=== PATIENT | female | born 1995 | race Caucasian/White ===

== ENCOUNTER 2018-06-04 07:28 | Emergency (ER) | END 2018-06-04 09:24 | disposition home or self-care (01) ==

== ENCOUNTER 2018-06-08 22:10 | Emergency (ER) | END 2018-06-09 01:27 | disposition left against medical advice (07) ==

== ENCOUNTER 2018-06-09 08:13 | Emergency (ER) | END 2018-06-09 11:04 | disposition home or self-care (01) ==

== ENCOUNTER 2018-08-03 11:23 | Emergency (ER) | END 2018-08-03 13:53 | disposition home or self-care (01) ==

== ENCOUNTER 2018-10-05 01:55 | Outpatient (CLI) | END 2018-10-05 12:25 | disposition home or self-care (01) ==

== ENCOUNTER 2018-12-04 16:02 | Inpatient (IN) | payer OTHER ==
[~2018-12-04] VITALS: Ht 162.6 cm; Wt 74.0 kg
[~2018-12-04 16:02] MED LIST: PREN-19 PO
[2018-12-04 16:36] VITALS: Ht 162.6 cm; Wt 74.0 kg
[2018-12-04 16:40] VITALS: BP 101/56; PULSE 86; RESP 20
[2018-12-04] MEDS ORDERED: LACTATED RINGER'S 1,000 ML IV SCH (17:30)
--- NOTE | 2018-12-04 19:35 | HP ---
Date/Time of Note Date/Time of Note DATE: 12/04/18 TIME: 19:29 OB - History Hx of Present Free Text/Dictation Patient is a 22-year-old 2 para 1 at 31 weeks and 3 days of gestation with estimated date of delivery February 02, 2019 Patient presents with chief complaint of abdominal pressure She is currently on weekly [place] secondary to history of delivery at 34 weeks of gestation Patient reports positive movement, denies any vaginal bleeding or leaking fluid : 2 Para: 1 Care: Good Care Obstetrical Complications: Other (Cervical shortening) Past Family/Social History * Past Medical, Surgical, Family and Obstetric Histories reviewed from chart. OB Admission Exam Vital Signs Vital Signs Vital Signs Date Temp Pulse Resp B/P (MAP) Pulse Ox O2 O2 Flow FiO2 Time Delivery Rate 12/04/18 98.6 86 20 101/56 Room Air 16:40 (71) Physical Exam HEENT: WNL Heart: Rhythm Normal Lungs: Clear, Equal Abdomen: WNL Extremities: Normal Reflexes: Normal Membranes: Intact Heart Rate: 140's Accelerations: Accelerations Present Decelerations: No Decelerations Varibility: Moderate Contractions on Admission: None Last 72 hourBlood Glucose fibronectin positive PROCEDURE: US OB. CLINICAL INDICATION: labor at 31 weeks gestational age. TECHNIQUE: Multiple sonographic images of the uterus were obtained. The images were reviewed on a PACS workstation. COMPARISON: No prior studies are available for comparison. FINDINGS: There is a single live intrauterine gestation. heart rate is 132 beats per minute. Measurements were made in order to determine age. The results are as follows: BPD = 8.27 cm. HC = 29.86 cm. AC = 30.48 cm. FL = 6.28 cm. Estimated weight is 2243 +/- 336 grams. LMP growth percentile is 96 %. Menstrual age by ultrasound dates is 33 weeks 3 days. The estimated date of delivery is 01/19/2019. Position is cephalic and placenta is anterior grade II. There is no evidence for an abruption or placenta previa. IMPRESSION: 1. Single live intrauterine gestation of 33 weeks 3 days gestational age by ultrasound dates. 2. The estimated date of delivery is 01/19/2019. 3. LMP growth percentile is 96%. RPTAT: QQ .Vikas Henley MD, MD Date Time Electronically viewed and signed by .Vikas Henley MD, MD on 12/04/2018 19:02 .R/ CC: JEREMÍAS PRETTY MD [id number] PROCEDURE: US biophysical profile and transvaginal sonography of the cervix. CLINICAL INDICATION: labor at 31 weeks gestational age. TECHNIQUE: Multiple sonographic images of the uterus were obtained. Transvaginal sonography of the cervix was also performed. The images were reviewed on a PACS workstation. COMPARISON: No prior studies are available for comparison. FINDINGS: There is a single live intrauterine gestation. heart rate is 137 beats per minute. The position is cephalic. The placenta is anterior grade II with no abruption or previa. The YAJAIRA is 12.9 cm. (Normal = 5-20 cm.) Cervical length is 2.0 cm. Breathing Movement: 2 Gross Body Movement: 2 Tone: 2 Qualitative Amniotic Fluid Volume: 2 TOTAL: 8 IMPRESSION: 1. The biophysical score is 8/8. 2. Cervical length is 2.0 cm. RPTAT: QQ .Vikas Henley MD, MD Date Time Electronically viewed and signed by .Vikas Henley MD, MD on 12/04/2018 19:01 .R/ CC: JEREMÍAS PRETTY MD [id number] Last 72 hours Lab Results Urine Results - 72 Hrs Test 12/04/18 17:10 Urine Color YELLOW (YELLOW) Urine Clarity SLIGHTLY CLOUDY (CLEAR) Urine pH 6.0 (5.0-9.0) Urine Specific [place] 1.020 (1.003-1.030) Urine Ketones NEGATIVE mg/dL (NEGATIVE) Urine Nitrite NEGATIVE mg/dL (NEGATIVE) Urine Bilirubin NEGATIVE mg/dL (NEGATIVE) Urine Urobilinogen NEGATIVE mg/dL (NEGATIVE) Urine Leukocyte Esterase 2+ [place]/ul (NEGATIVE) H Urine Microscopic RBC 1 /HPF (0-5) Urine Microscopic WBC 3 /HPF (0-5) Urine Squamous Epithelial Cells MODERATE /HPF (FEW) Urine Mucus FEW /HPF (NONE SEEN) A Urine Hemoglobin NEGATIVE mg/dL (NEGATIVE) Urine Glucose NEGATIVE mg/dL (NEGATIVE) Urine Total Protein NEGATIVE mg/dl (NEGATIVE) OB Assessment/Plan Reason for admission: labor (Cervical shortening 2 cm) Other plan: Admit to antepartum Continuous monitoring Betamethasone for lung maturity Antibiotics for urinary tract infection Prometrium 200 mg per vagina nightly Perinatology consultation Copies To: CC: MARCIA COLIN MD ; JEREMÍAS PRETTY MD Dec 04, 2018 19:35
[2018-12-04] MEDS ORDERED: PROGESTERONE 100 MG CAP VAG SCH ×2 (20:00→21:00)
[2018-12-04] MEDS: LACTATED RINGER'S 1,000 ML IV SCH (20:21)
[2018-12-04] MEDS ORDERED: CA GLUCONATE (GM) 10% 10ML INJ IV PRN (20:30)
[2018-12-04] MEDS ORDERED: AMPICILLIN 2 GM/NS (PMX) 100 ML IV ONE (20:30)
[2018-12-04] MEDS ORDERED: MAGNESIUM SULFATE 4 GM/100 ML 100 ML IV ONE (20:30)
[2018-12-04] MEDS: PROGESTERONE 100 MG CAP VAG SCH (20:38)
[2018-12-04] MEDS ORDERED: MAGNESIUM SULFATE 20 GM/500 ML 500 ML IV SCH (21:00)
[2018-12-04] MEDS: MAGNESIUM SULFATE 20 GM/500 ML 500 ML IV SCH (21:31)
[2018-12-04] MEDS: BETAMET NA PHOS/AC(6 MG/ML) 2 ML INJ SYG IM SCH (21:33)
[2018-12-05] MEDS: AMPICILLIN 1 GM/NS (PMX) 50 ML IV SCH ×6 (00:35→20:46)
[2018-12-05] MEDS: LACTATED RINGER'S 1,000 ML IV SCH (07:00)
[2018-12-05] MEDS: MAGNESIUM SULFATE 20 GM/500 ML 500 ML IV SCH ×2 (08:50→19:42)
[2018-12-05] MEDS ORDERED: DOCUSATE SODIUM 100 MG CAP PO SCH (09:00)
[2018-12-05] MEDS ORDERED: PRENATAL VITAMIN PO SCH (09:00)
[2018-12-05] MEDS ORDERED: FERROUS SULFATE (EC) 325 MG TAB PO SCH (09:00)
[2018-12-05] MEDS: BETAMET NA PHOS/AC(6 MG/ML) 2 ML INJ SYG IM SCH (21:32)
[2018-12-05] MEDS: PROGESTERONE 100 MG CAP VAG SCH (22:48)
[2018-12-06] MEDS: AMPICILLIN 1 GM/NS (PMX) 50 ML IV SCH ×4 (00:36→12:29)
[2018-12-06] MEDS: LACTATED RINGER'S 1,000 ML IV SCH (02:14)
[2018-12-06] MEDS: MAGNESIUM SULFATE 20 GM/500 ML 500 ML IV SCH (06:12)
--- NOTE | 2018-12-06 09:18 | QN ---
Documentation Comment Late Entry Note:12/05/17 31+wks GA with PTL No CTXs No VB NST reassuring [place] No CTXs pelvic Deferred --->Steroids Mg -->Discharge plan tomorrow ROSE FORDE M.D. Dec 06, 2018 09:18
--- NOTE | 2018-12-06 09:19 | QN ---
Documentation Comment 31+wks GA with PTL No CTXs No VB NST reassuring [place] No CTXs pelvic Deferred --->Perinatology consult --->Repeat ultrasound tomorrow --->Discharge plan tomorrow ROSE FORDE M.D. Dec 06, 2018 09:19
[2018-12-06] MEDS ORDERED: NACL 0.9% 3 ML SYG IV SCH (21:30)
[2018-12-06] MEDS: FERROUS SULFATE (EC) 325 MG TAB PO SCH (22:55)
[2018-12-06] MEDS: DOCUSATE SODIUM 100 MG CAP PO SCH (22:55)
[2018-12-06] MEDS: PRENATAL VITAMIN PO SCH (22:55)
[2018-12-07] MEDS: PROGESTERONE 100 MG CAP VAG SCH ×2 (00:31→21:03)
[2018-12-07] MEDS: PRENATAL VITAMIN PO SCH (23:34)
[2018-12-07] MEDS: FERROUS SULFATE (EC) 325 MG TAB PO SCH (23:34)
[2018-12-08] MEDS: DOCUSATE SODIUM 100 MG CAP PO SCH ×2 (09:31→17:42)
--- NOTE | 2018-12-08 13:50 | CONS ---
Date/Time of Note Date/Time of Note DATE: 12/08/18 TIME: 13:45 Assessment/Plan Assessment/Plan Result Diagram: 12/04/18194412/04/181944 Consultation Date/Type/Reason Admit Date/Time Dec 04, 2018 at 19:30 Date of Consultation: Dec 08, 2018 Type of Consult Neonatology Reason for Consultation 31.6 weeks gestation mother with short cervix Requesting Provider: MARCIA COLIN MD Hx of Present Illness I was asked to do a consultation on this mother who is 22-year old with 31.6- week . She is 4 para 1 AB 2 living 1. She has 1 child who is 3 years old and was born at 34 weeks gestation in [facility]. Doing well with no problems. Mother had good care. Her labs are as follows blood group O+, RPR nonreactive, HBsAg negative, HIV negative, GC and chlamydia cultures negative, GBS unknown. She has no pre-existing medical conditions and she has history of short cervix and delivering the previous child 3 years ago. She was admitted on 12/04/2018 and received betamethasone on at 2136 hrs. and second dose on 12/05 at 2131 hrs. She also received magnesium sulfate from o 12/06. Ultrasound on admission showed an estimated weight of 20-43 g 336 and 33.3 weeks of composite gestational age. There is no contractions at the present time and membranes are intact. I discussed about the risk of premature infant at 32 weeks including respiratory distress syndrome, retained lung fluid, apnea of prematurity, risk for sepsis, risk for hyperbilirubinemia, risk for neurodevelopmental delay, poor feeding requiring go watch feeding, TPN, possible PICC line placement, and to be monitored for all problems of prematurity. Discussed about the treatment in cluding oxygen administration, CPAP administration, caffeine if has significant apnea, antibiotics if clinical signs of sepsis, phototherapy if needed for jaundice, PICC line and feeding intolerance, and poor feeding. Mother would like to breast-feed the and encouraged her to pump jc stmilk and discussed about the benefits of breastmilk. Renetta about good outcomes at 32 weeks including survival of greater than 95% and risk for neurodevelopmental delay. All mother's questions were answered and discussion was concluded after mother had no further questions. Total time spent 20 minutes with [id number] counseling of 15 minutes. Past Medical History Medications Current Medications Progesterone (Prometrium) 200 mg QHS VAG Last administered on 12/07/18 21:03; Admin Dose 200 MG; Start 12/04/18 at 20:00 Calcium Gluconate (Ca Gluc) 1 gm ONCE PRN IV TOXCITY; Start 12/04/18 at 20:30 IV Flush (NS 3 ml) 3 ml Q8H and PRN adm IV ; Start 12/06/18 at 21:30 Docusate Sodium (Colace) 100 mg DAILY PO Last administered on 12/06/18 22:55; Admin Dose 100 MG; Start 12/06/18 at 22:00 Ferrous Sulfate (Ferrous Sulfate (Ec)) 325 mg DAILY PO Last administered on 12/07/18 23:34; Admin Dose 325 MG; Start 12/06/18 at 22:00 Prenat Multivit/ [place]/Iron/Folic Ac () 1 tab DAILY PO Last administered on 12/07/18 23:34; Admin Dose 1 TAB; Start 12/06/18 at 22:00 Allergies: Coded Allergies: No Known Allergy (Unverified , 10/05/18) Social History Smoking Status: Never smoker Exam/Review of Systems Vital Signs Vitals Vital Signs Date Temp Pulse Resp B/P (MAP) Pulse Ox O2 O2 Flow FiO2 Time Delivery Rate 12/04/18 98.6 86 20 101/56 Room Air 16:40 (71) Medications Medications Current Medications Progesterone (Prometrium) 200 mg QHS VAG Last administered on 12/07/18 21:03; Admin Dose 200 MG; Start 12/04/18 at 20:00 Calcium Gluconate (Ca Gluc) 1 gm ONCE PRN IV TOXCITY; Start 12/04/18 at 20:30 IV Flush (NS 3 ml) 3 ml Q8H and PRN adm IV ; Start 12/06/18 at 21:30 Docusate Sodium (Colace) 100 mg DAILY PO Last administered on 12/06/18 22:55; Admin Dose 100 MG; Start 12/06/18 at 22:00 Ferrous Sulfate (Ferrous Sulfate (Ec)) 325 mg DAILY PO Last administered on 12/07/18 23:34; Admin Dose 325 MG; Start 12/06/18 at 22:00 Prenat Multivit/ [place]/Iron/Folic Ac () 1 tab DAILY PO Last administered on 12/07/18at 23:34; Admin Dose 1 TAB; Start 12/06/18 at 22:00 GLORIA JAVED MD Dec 08, 2018 13:50
[2018-12-08] MEDS: NIFEdipine 10 MG CAP PO SCH (17:43)
[2018-12-08] MEDS: FERROUS SULFATE (EC) 325 MG TAB PO SCH (23:57)
[2018-12-08] MEDS: PROGESTERONE 100 MG CAP VAG SCH (23:57)
[2018-12-08] MEDS: PRENATAL VITAMIN PO SCH (23:58)
[2018-12-09] MEDS: NIFEdipine 10 MG CAP PO SCH ×4 (00:27→18:04)
--- NOTE | 2018-12-09 01:49 | PN ---
Date/Time of Note Date/Time of Note DATE: 12/09/18 TIME: 01:48 OB Subjective Subjective Subjective Patient seen and examined on 12/08/2018. She states good movement. She denies nausea, vomiting, shortness of breath, chest pain, abdominal pain between contractions, headache, visual changes, vaginal bleeding or LOF. OB Objective Objective Objective General: Patient appears well, alert and oriented, NAD, appropriate mood and affect ABD: gravid, soft, non-tender. Back: No CVA tenderness (B/L) LE: Mild edema. No clubbing, cyanosis, edema, thigh or calf tenderness bilaterally FHT: 130 bpm , moderate variability with acceleration, no deceleration-category I Contractions: None OB Assessment/Plan Other plan: 22-year-old with single intrauterine at 31 weeks and 6 days with short cervix. Her exam is unremarkable. heart rate is category 1. She has no uterine contraction. She has received magnesium sulfate and betamethasone, currently steroid benefited. She is on Prometrium vaginal suppository and Procardia 10 mg every 6 hours. Continue in-house management until 33 weeks. JOSE DE JESUS FIERRO Dec 09, 2018 01:49
[2018-12-09] MEDS: DOCUSATE SODIUM 100 MG CAP PO SCH (20:30)
[2018-12-09] MEDS: FERROUS SULFATE (EC) 325 MG TAB PO SCH (21:30)
[2018-12-09] MEDS: PRENATAL VITAMIN PO SCH (21:30)
[2018-12-09] MEDS: PROGESTERONE 100 MG CAP VAG SCH (21:31)
[2018-12-10] MEDS: NIFEdipine 10 MG CAP PO SCH ×5 (00:03→23:39)
--- NOTE | 2018-12-10 01:39 | CONS ---
DATE OF ADMISSION: 12/04/2018 DATE OF CONSULTATION: 12/09/2018 HISTORY OF PRESENT ILLNESS: The patient is a 22-year-old G4, P1, 2 abortions at 32 weeks today, pres ented with complaint of abdominal pain. Cervical length was 1.2 cm. She was given magnesium sulfate and betamethasone. OBSTETRIC HISTORY: Significant for spontaneous vaginal delivery at 34 weeks, otherwise negative. REVIEW OF SYSTEMS: All systems reviewed. They are negative. OBJECTIVE: Vital signs are normal. Physical examination deferred. heart tones are reassuring . Contractions are irritabilities. IMPRESSION: Intrauterine at 32 weeks with labor at 32 weeks and status post magnes ium and betamethasone, history of vaginal delivery at 34 weeks. Currently, she is on Prometrium at b edtime as IM progesterone is not available. RECOMMENDATIONS: Given the patient's history and 1.2 cm of the cervix, I do recommend to keep the pa tient at least of 33 weeks' ____ repeat a cervical length on this coming Thursday. If there is no c hange in the status, the patient can be discharged home especially since she needs to be reporting to court for her immigration; however, I spoke to her if there is any change in cervical length or her status changes, we will discuss further. Procardia-XL 10 mg every 6 hours as long as her blood press ures allow, begin ____ and upon discharge, she needs to be continued on IM progesterone weekly as opp osed to progesterone vaginally. Dictated By: LOU GUTIERREZ/DANISHA Conf#: [id number] DID#: [id number]
--- NOTE | 2018-12-10 03:46 | QN ---
Documentation Comment late entry for service rendered 0n 12/09/180 no c/o of cramping pain EFM no uterine activities tracing ok CVL 1.2cm on procardia A IUP 32w short cervix S/P BMZ and Mg P continue current care repeat CVL in one week ANDRADE KULKARNI MD Dec 10, 2018 03:46
[2018-12-10] MEDS: DOCUSATE SODIUM 100 MG CAP PO SCH (09:08)
--- NOTE | 2018-12-10 17:45 | QN ---
Documentation Comment no complain of cramping pain ,feels pressure only on standing to go BR having BM daily EFM no uterine activities CAT I tracing A IUP 32w2d short cervix no PTL P repeat CVL on thu ANDRADE KULKARNI MD Dec 10, 2018 17:45
[2018-12-10] MEDS: FERROUS SULFATE (EC) 325 MG TAB PO SCH (21:15)
[2018-12-10] MEDS: PRENATAL VITAMIN PO SCH (21:15)
[2018-12-10] MEDS: PROGESTERONE 100 MG CAP VAG SCH (21:53)
[2018-12-11] MEDS: NIFEdipine 10 MG CAP PO SCH ×3 (05:45→18:00)
--- NOTE | 2018-12-11 16:06 | PN ---
Date/Time of Note Date/Time of Note DATE: 12/11/18 TIME: 16:03 OB Subjective Subjective Subjective Denies any contractions, leaking of fluid, vaginal bleeding or decreased movement. Denies any pelvic pain. OB Objective Objective Objective General appearance: Alert and oriented x4 does not appear to be in any acute distress Abdomen: Soft, gravid, fundal height consider gestational age, no tenderness NST: Category 1 and appropriate for gestational age No contraction on the monitor noted extremities: No calf tenderness, no click no edema OB Assessment/Plan Other Assessment: Admitted for labor and short cervix Status post betamethasone Currently on Procardia 10 mg every 6 hours Doing well Status post perinatology consultation Plan to proceed with repeat cervical length soon. If cervix remains stable possible discharge home with a follow-up as outpatient and rest at home Patient aware of the plan YEMI LEAL MD Dec 11, 2018 16:06
[2018-12-11] MEDS ORDERED: AL HYDROX/MG HYDROX/SIMETH 30 ML CUP PO PRN (19:00)
[2018-12-11] MEDS: DOCUSATE SODIUM 100 MG CAP PO SCH (20:00)
[2018-12-11] MEDS: PRENATAL VITAMIN PO SCH (21:04)
[2018-12-11] MEDS: PROGESTERONE 100 MG CAP VAG SCH (21:04)
[2018-12-11] MEDS: FERROUS SULFATE (EC) 325 MG TAB PO SCH (21:04)
--- NOTE | 2018-12-11 23:08 | PN ---
Date/Time of Note Date/Time of Note DATE: 12/11/18 TIME: 22:59 OB Subjective Subjective Subjective I was called by RN to evaluate the patient that reproted today to RN, having chest pain and SOB since last night. Noted to have tachycardia as well. Denies any LOF, vaginal Bleeding. Or decreased movement OB Objective Objective Objective GA: A&O, Does not appear to be in any acute distress. Lungs: CTA bilaterally CV: RRR. Sinus tachycardia Extremities: No callf tenderness, no cord palpable. No cord palpable [place]: no contractions. CXR: Granuloma EKG:: Normal sinus rythms ROCEDURE: XR Chest. CLINICAL INDICATION: chest pain TECHNIQUE: PA and lateral views of the chest were obtained COMPARISON: None FINDINGS: The heart and mediastinum are within normal limits. There is a right middle lobe calcified granuloma. There is no pleural effusion or pneumothorax. The bones and soft tissues are unremarkable. RPTAT: AA IMPRESSION: Right middle lobe calcified granuloma. .Toni Muñiz MD, MD Date Time ROCEDURE: Ultrasound examination of bilateral lower extremities veins with Doppler. CLINICAL INDICATION: Leg pain and swelling, shortness of breath. TECHNIQUE: Multiple sonographic images of bilateral lower extremity venous systems were performed with xiao scale and color Doppler. COMPARISON: None. FINDINGS: Bilateral common femoral, superficial femoral and popliteal veins demonstrate normal color flow, waveforms, compression and response to augmentation. There is no evidence of deep venous thrombosis. IMPRESSION: No evidence of deep venous thrombosis within bilateral lower extremities. OB Assessment/Plan Other Assessment: Admitted to labor s/p Tocolysis and received Steroid Tachycardia and Pleuritic chest pain, , on bed rest, high risk for PE, Doppler of the lower extremity negative. Can not r/o carddiomyopathy., If PE ruled out, and continue to be tachycardic, consider Echocardiogram Consultation with Hospitalist done,. DR. Potts that will see her RALPH I will start the patient on Heparin Sub Q BID until cleared for PE Plan of care disucssed with the patient and RN. YEMI LEAL MD Dec 11, 2018 23:08
[2018-12-11] MEDS ORDERED: HEPARIN 5,000 UNIT/1 ML VIAL SC SCH (23:30)
--- NOTE | 2018-12-11 23:35 | CONS ---
Date/Time of Note Date/Time of Note DATE: 12/11/18 TIME: 23:35 Assessment/Plan Assessment/Plan Hospital Course This is a 22-year-old female who was admitted to the OB floor for: #1 chest pressure: Rule out ACS versus pulmonary embolism versus medication effect. So far ultrasound of the lower extremities are negative for DVT. ABG shows a pH of 7.4/CO2 of 34/PO2 of 101 on room air. EKG does show sinus tachycardia and the patient is currently tachycardic. She does report subjective chest pressure when she takes of breath. She does report dyspnea on exertion. She has been on heparin subq for the past 24hrs it also appears she was on SCDs. At the current time pulmonary embolism is high on the differential however given that she was recently started on Procardia for tocolytic purposes that also has a side effect of dyspnea. I did discuss the risks and benefits of obtaining a CTA of the chest to rule out PE to the patient. She will decide if she would like to undergo this test. In the meantime I will order an echocardiogram as well as trend cardiac enzymes x2. I will start her on Lovenox 1 mg/kg every 12 hours for suspicion for PE. We will continue to monitor c losely. Follow-up with her in the a.m. and reassess the patient and discuss with her whether she would like to proceed with CTA of the chest. #2 IUP at 32 weeks: Continue further management as per OB, labor management. Thank you for this consultation we will follow with you. Consultation Date/Type/Reason Admit Date/Time Dec 04, 2018 at 19:30 Date of Consultation: Dec 11, 2018 Type of Consult Medicine Reason for Consultation Tachycardia, chest pressure Requesting Provider: YEMI LEAL MD Hx of Present Illness This is a 22-year-old female 2 para 1 at 32 weeks and 3 days a pproximately, who presented on 12/04/2018 with a chief complaint of abdominal pressure. She was admitted for labor she was noted to have a cervical length of 2 cm. She has been undergoing continuous monitoring. She was given betamethasone as well as antibiotics for her UTI. She has also been started on Prometrium 200 mg. She was also evaluated by the perinatologist. Patient was also recently started on Procardia. Approximately over the last 24 hours patient was noted to be tachycardic with heart rate going to the highest of 130s. Patient also reports that when she takes a deep breath she feels chest pressure. She also feels dyspnea when she is walking. She denies any chest pain. Denies any swelling in her feet. Denies any cough. Denies any hemoptysis. She was started on heparin subq within the past 24hrs, and it appears she was on scds as well based on orders. Allergies: NKDA meds: See MAR Const: As per HPI Eyes : No pain discharge or redness or change in visual acuity ENT: No pain, sore throat, congestion, congestion, dysphagia or discharge Respiratory: As per HPI Cardiovascular: As per HPI GI : no change in appetite, abdominal pain, nausea, vomiting, diarrhea, constipation, or change in the color his stool Genitourinary: No dysuria, hematuria, flank pain , discharge or CVA tenderness Musculoskeletal: No joint pain, back pain, neck pain, restricted range of motion in neck or joints Skin: No rash, bruising or hives Neuro: No headache, dizziness, syncope, seizure, focal weakness Endocrine: No polyuria, polydipsia, temperature intolerance Psych: No hallucination, depression, anxiety or suicidal ideation Past Medical History Medical History: no pertinent history Medications Current Medications Progesterone (Prometrium) 200 mg QHS VAG Last administered on 12/11/18at 21:04; Admin Dose 200 MG; Start 12/04/18 at 20:00 Docusate Sodium (Colace) 100 mg DAILY PO Last administered on 12/10/18at 09:08; Admin Dose 100 MG; Start 12/06/18 at 22:00 Nifedipine (Procardia) 10 mg Q6 PO Last administered on 12/11/18at 12:15; Admin Dose 10 MG; Start 12/08/18 at 18:00 Ferrous Sulfate (Ferrous Sulfate (Ec)) 325 mg HS PO Last administered on 12/11/18 21:04; Admin Dose 325 MG; Start 12/09/18 at 21:00 Prenat Multivit/ [place]/Iron/Folic Ac () 1 tab HS PO Last administered on 12/11/18at 21:04; Admin Dose 1 TAB; Start 12/09/18 at 21:00 Al Hydrox/Mg Hydrox/Simethicone (Mag-Al Plus) 30 ml Q6H PRN PO GASTROINTESTINAL UPSET; Start 12/11/18 at 19:00 Polysaccharide Iron Complex (Niferex-150) 1 cap BID PO ; Start 12/12/18 at 09:00 Folic Acid (Folic Acid) 0.4 mg DAILY PO ; Start 12/12/18 at 09:00 Heparin Sodium (Porcine) (Heparin (5000 Units/1ml)) 5,000 unit BID SC ; Start 12/11/18 at 23:30 Allergies: Coded Allergies: No Known Allergy (Unverified , 10/05/18) Past Surgical History Past Surgical Hx: no surgical history Family History Significant Family History: no pertinent family hx Social History Alcohol Use: none Smoking Status: Never smoker Drug Use: none Exam/Review of Systems Exam General: Patient currently lying in bed does not appear to be in any acute distress HEENT: Atraumatic, normocephalic. The pupils are equal, round and reactive. Extraocular motor are intact Neck: Supple with full range of motion. No rigidity or meningismus Chest: Nontender Lungs: Clear to auscultation bilaterally no crackles rales or wheezing, when asked to take a deep breath patient does report subjective chest pressure Heart: Sinus tachycardia Abdomen: Soft , nontender, nondistended , bowel sounds are present. No guarding no rebound tenderness , No masses or organomegaly. No costovertebral temporal angle mass Extremities: Normal to inspection, no edema no cyanosis Neurologic: Normal mental status, speech normal, cranial nerves II through XII are intact, motor and sensory are intact, no focal weakness Additional Comments PROCEDURE: Ultrasound examination of bilateral lower extremities veins with Doppler. CLINICAL INDICATION: Leg pain and swelling, shortness of breath. TECHNIQUE: Multiple sonographic images of bilateral lower extremity venous systems were performed with xiao scale and color Doppler. COMPARISON: None. FINDINGS: Bilateral common femoral, superficial femoral and popliteal veins demonstrate normal color flow, waveforms, compression and response to augmentation. There is no evidence of deep venous thrombosis. IMPRESSION: No evidence of deep venous thrombosis within bilateral lower extremities. .Dillon Navarro MD, Date Time Electronically viewed and signed by .Dillon Navarro MD, on 12/11/2018 19:31 .T/ CC: YEMI LEAL MD [id number] PROCEDURE: XR Chest. CLINICAL INDICATION: chest pain TECHNIQUE: PA and lateral views of the chest were obtained COMPARISON: None FINDINGS: The heart and mediastinum are within normal limits. There is a right middle lobe calcified granuloma. There is no pleural effusion or pneumothorax. The bones and soft tissues are unremarkable. RPTAT: AA IMPRESSION: Right middle lobe calcified granuloma. .Toni Muñiz MD, MD Date Time Electronically viewed and signed by .Toni Muñiz MD, MD on 12/11/2018 21:50 .S/ CC: YEMI LEAL MD [id number] EKG shows sinus tachycardia at approximately 112 bpm, no ST or T wave amounts concerning for acute ischemia Medications Medications Current Medications Progesterone (Prometrium) 200 mg QHS VAG Last administered on 12/11/18at 21:04; Admin Dose 200 MG; Start 12/04/18 at 20:00 Docusate Sodium (Colace) 100 mg DAILY PO Last administered on 12/10/18at 09:08; Admin Dose 100 MG; Start 12/06/18 at 22:00 Nifedipine (Procardia) 10 mg Q6 PO Last administered on 12/11/18at 12:15; Admin Dose 10 MG; Start 12/08/18 at 18:00 Ferrous Sulfate (Ferrous Sulfate (Ec)) 325 mg HS PO Last administered on 12/11/18at 21:04; Admin Dose 325 MG; Start 12/09/18 at 21:00 Prenat Multivit/ [place]/Iron/Folic Ac () 1 tab HS PO Last administered on 12/11/18at 21:04; Admin Dose 1 TAB; Start 12/09/18 at 21:00 Al Hydrox/Mg Hydrox/Simethicone (Mag-Al Plus) 30 ml Q6H PRN PO GASTROINTESTINAL UPSET; Start 12/11/18 at 19:00 Polysaccharide Iron Complex (Niferex-150) 1 cap BID PO ; Start 12/12/18 at 09:00 Folic Acid (Folic Acid) 0.4 mg DAILY PO ; Start 12/12/18 at 09:00 Heparin Sodium (Porcine) (Heparin (5000 Units/1ml)) 5,000 unit BID SC ; Start 12/11/18 at 23:30 DANNY HERNANDEZ Dec 11, 2018 23:35
[2018-12-12] MEDS ORDERED: ENOXAPARIN 100 MG/ML SYG SC SCH ×2 (00:30→12:30)
[2018-12-12] MEDS ORDERED: ENOXAPARIN 80 MG/0.8 ML SYG SC SCH (00:30)
[2018-12-12] MEDS: NIFEdipine 10 MG CAP PO SCH ×2 (06:00)
[2018-12-12] MEDS: POLYSACCHARIDE IRON COMPLEX CAP PO SCH ×2 (08:54→21:01)
[2018-12-12] MEDS: FOLIC ACID 0.4 MG TAB PO SCH (08:54)
[2018-12-12] MEDS: DOCUSATE SODIUM 100 MG CAP PO SCH (08:54)
--- NOTE | 2018-12-12 09:06 | CONS ---
Date/Time of Note Date/Time of Note DATE: 12/12/18 TIME: 09:06 Assessment/Plan Assessment/Plan Hospital Course 22-year-old female 2 para 1 at 32 weeks and 3 days approximately, who presented on 12/04/2018 with a chief complaint of abdominal pressure Assessment/Plan 1. Sinus tachycardia - Blood pressure stable and fluctuating low 100s to 120s. - Procardia d/c at this time given no contractions - Will continue monitoring - TSH within normal limits - CXR normal 2. Chest discomfort - most likely pulmonary related given occurs with deep inspiration - pain control as needed - trops negative and ECHO shows no acute CM and EF 60%. - Unable to rule out PE given patient refusing CTA. LE dopplers negative for acute DVT. ECHO negative for acute right heart strain so less likely PE. Would recommend continuing Lovenox for now given unable to rule out PE. - will check hgb to rule out anemia in setting of acute SOB 3. IUP at 32 weeks - Management per OB, labor management. 4. Disposition - Continue monitoring heart rate and for worsening of symptoms. Check CBC in the am to assess hgb. Results 24hrs Laboratory Tests Test 12/11/18 23:05 12/11/18 23:37 12/12/18 06:33 Blood Gas Specimen Source Blood arterial Arterial Blood Date Drawn 12/11/2018 11:30:48 PM Arterial Blood pH 7.422 (Temp corrected) Arterial Blood pCO2 34.0 L (Temp correct) Arterial Blood pO2 101.3 H (Temp corrected) Arterial Blood HCO3 21.7 L Arterial Blood Base Excess -2.2 Arterial Blood 97.4 Oxygen Saturation Tyler Test ACCEPTAB Arterial Blood Gas Right Radial Puncture Site Arterial 0.3 Blood Carboxyhemoglobin Arterial Blood 0.4 Methemoglobin Blood Gas A-a O2 7.7 Differential Oxyhemoglobin Percent 96.7 Blood Gas Temperature 37.0 Blood Gas Actual 20 Respiration Rate Blood Gas Modality ROOM AIR FiO2 21.0 Blood Gas Notified Whom MG Blood Gas Notified Time 12/11/2018 11:38:45 PM Creatine Kinase < 20 L < 20 L Creatine Kinase Index Creatinine Kinase MB (Mass) 0.42 < 0.22 Troponin I < 0.012 < 0.012 B-Type Natriuretic Peptide 26 Thyroid Stimulating 2.290 Hormone (TSH) Free Thyroxine 0.74 L Consultation Date/Type/Reason Admit Date/Time Dec 04, 2018 at 19:30 Initial Consult Date 12/11/18 Type of Consult medicine Requesting Provider: YEMI LEAL MD 24 HR Interval Summary Free Text/Dictation Patient states she has some shortness of breath with ambulation but denies any chest pain, palpitations, nausea, vomiting, dizziness, or headaches. Exam/Review of Systems Exam General: Patient sitting up in bed in no acute distress Neck: Supple Chest: Nontender Lungs: Clear to auscultation bilaterally no crackles rales or wheezing Heart: Sinus tachycardia, no murmurs Abdomen: Soft , nontender, , bowel sounds are present. No guarding no rebound tenderness Extremities: Normal to inspection, no edema no cyanosis Neurologic: Normal mental status, speech normal, cranial nerves II through XII are intact, motor and sensory are intact, no focal weakness Medications Medications Current Medications Progesterone (Prometrium) 200 mg QHS VAG Last administered on 12/11/18at 21:04; Admin Dose 200 MG; Start 12/04/18 at 20:00 Docusate Sodium (Colace) 100 mg DAILY PO Last administered on 12/12/18at 08:54; Admin Dose 100 MG; Start 12/06/18 at 22:00 Nifedipine (Procardia) 10 mg Q6 PO Last administered on 12/11/18 12:15; Admin Dose 10 MG; Start 12/08/18 at 18:00 Ferrous Sulfate (Ferrous Sulfate (Ec)) 325 mg HS PO Last administered on 12/11/18at 21:04; Admin Dose 325 MG; Start 12/09/18 at 21:00 Prenat Multivit/ [place]/Iron/Folic Ac () 1 tab HS PO Last administered on 12/11/18at 21:04; Admin Dose 1 TAB; Start 12/09/18 at 21:00 Al Hydrox/Mg Hydrox/Simethicone (Mag-Al Plus) 30 ml Q6H PRN PO GASTROINTESTINAL UPSET; Start 12/11/18 at 19:00 Polysaccharide Iron Complex (Niferex-150) 1 cap BID PO Last administered on 12/12/18at 08:54; Admin Dose 1 CAP; Start 12/12/18 at 09:00 Folic Acid (Folic Acid) 0.4 mg DAILY PO Last administered on 12/12/18 08:54; Admin Dose 0.4 MG; Start 12/12/18 at 09:00 Heparin Sodium (Porcine) (Heparin (5000 Units/1ml)) 5,000 unit BID SC ; Start 12/11/18 at 23:30; Status Hold Enoxaparin Sodium (Lovenox) 75 mg Q12H SC ; Start 12/12/18 at 12:30 MIRZA AGUIRRE MD Dec 12, 2018 09:06
--- NOTE | 2018-12-12 09:50 | RADRPT ---
Echocardiogram Report Patient Name: ZOIE VEE Gender: Female Date: 1995 Study Date: 12-Dec-2018 Horse Racer: Jassi Moss RDCS Location: [id number] Ref. Physician: DANNY HERNANDEZ Quality: Good Procedures: Transthoracic echocardiogram with complete 2D, M-Mode, and doppler examination. Indications: Chest Pain. 2D/M Mode Doppler Measurement Value Normal Ranges Measurement Value Normal Ranges LVIDd 2D 4.3 3.5 - 5.6 cm AV Peak Cesar 1.6 m/sec LVIDs 2D 2.7 2.1 - 4.1 cm AV Peak PG 11.0 mmHg FS 2D 36.8 % LVOT Peak Cesar 1.0 m/sec LVPWd 2D 1.0 0.6 - 1.1 cm LVOT Peak PG 4.0 mmHg IVSd 2D 0.9 0.6 - 1.1 cm MV E Peak Cesar 0.7 m/sec IVS/LVPW 2D 0.9 MV A Peak Cesar 0.3 m/sec AoR Diam 2D 2.3 2.0 - 3.7 cm MV E/A 2.4 LA/Ao 2D 1 0 - 1 MV Decel Time 194 msec EDV 2D 79.0 cm3 MV E/A 2.4 ESV 2D 19.9 cm3 TV E Peak Cesar 0.5 m/sec LA Dimen 2D 3.2 2.3 - 4.0 cm Findings Left Ventricle: Normal left ventricular systolic function. Normal left ventricular cavity size. Normal left ventricular wall thickness. Ejection fraction is visually estimated at 60 %. Tissue Doppler/Mitral Doppler indices are within normal limits. Right Ventricle: Normal right ventricular size. Normal right ventricular systolic function. Left Atrium: The left atrium is normal in size. Right Atrium: The right atrium is normal in size. Mitral Valve: Normal appearance of the mitral valve. No mitral valve regurgitation is seen. Aortic Valve: Normal appearance of the aortic valve. No aortic regurgitation. Tricuspid Valve: Normal appearance of the tricuspid valve. Unable to obtain RVSP due to minimal presence of tricuspid regurgitation. Pericardium: Normal pericardium with no significant pericardial effusion. Aorta: Normal aortic root. IVC: Normal size and normal respiratory collapse consistent with normal right atrial pressure. Conclusions Normal left ventricular systolic function. Normal left ventricular cavity size. Normal left ventricular wall thickness. Ejection fraction is visually estimated at 60 %. Tissue Doppler/Mitral Doppler indices are within normal limits. No significant valvular stenosis or regurgitation seen. Unable to obtain RVSP due to minimal presence of tricuspid regurgitation. Normal size and normal respiratory collapse consistent with normal right atrial pressure. Electronically Signed By: Mario Tomas 12-Dec-2018 09:49:44 -0800 Patient Name: ZOIE VEE Study Date: 12-Dec-2018 [id number]
[2018-12-12] MEDS: ENOXAPARIN 80 MG/0.8 ML SYG SC SCH (12:30)
--- NOTE | 2018-12-12 13:40 | RADRPT ---
Vent Rate: 106 bpm RR Interval: 0 msec WA Interval: 128 msec QRS Duration: 86 msec QT Interval: 336 msec QTC Interval: 446 msec P-R-T Fraser: 64 - 83 - 40 degrees Sinus tachycardia Otherwise normal ECG No previous tracing available for comparison Electronically Signed By: Henry Murcia [id number]
--- NOTE | 2018-12-12 17:31 | QN ---
Documentation Comment 32+wks GA with PTL No CTXs No VB NST reassuring [place] No CTXs pelvic Deferred --->close Observation ROSE FORDE M.D. Dec 12, 2018 17:31
[2018-12-12] MEDS: FERROUS SULFATE (EC) 325 MG TAB PO SCH (21:01)
[2018-12-12] MEDS: PRENATAL VITAMIN PO SCH (21:01)
[2018-12-12] MEDS: PROGESTERONE 100 MG CAP VAG SCH (23:15)
[2018-12-13] MEDS: ENOXAPARIN 80 MG/0.8 ML SYG SC SCH ×2 (00:23→12:23)
[2018-12-13] MEDS: DOCUSATE SODIUM 100 MG CAP PO SCH (08:57)
[2018-12-13] MEDS: POLYSACCHARIDE IRON COMPLEX CAP PO SCH ×2 (08:57→21:07)
[2018-12-13] MEDS: FOLIC ACID 0.4 MG TAB PO SCH (08:57)
--- NOTE | 2018-12-13 10:08 | CONS ---
Date/Time of Note Date/Time of Note DATE: 12/13/18 TIME: 10:00 Assessment/Plan Assessment/Plan Assessment/Plan Chest x-ray was reviewed which is essentially unremarkable. ABG also was reviewed which is indicating mild hyperventilation. Assessment and recommendations; 1. Patient admitted for abdominal pressure as well as shortness of breath with tachycardia, most likely Procardia induced. However until the CTA of the chest is done, pulmonary embolism would be impossible to rule out based on clinical evaluation alone. 2. Currently patient is completely asymptomatic. Continue full dose Lovenox until delivery. Obtain CTA of the chest after delivery. Patient does not want to have CTA of the chest performed at this point because of . There has been resolution of symptoms coinciding with discontinuation of Procardia as well as initiation of Lovenox. Further limiting clinical evaluation as to the reason for improvement in symptoms. Obtaining VQ scan would cause an even higher dose of radiation. This was discussed with the patient as well as her in detail at bedside and patient is satisfied with this approach. Result Diagram: 12/13/18 0615 Results 24hrs Laboratory Tests Test 12/13/18 06:15 White Blood Count 9.5 # Red Blood Count 3.28 L Hemoglobin 9.3 L Hematocrit 28.9 L Mean Corpuscular Volume 88.1 Mean Corpuscular Hemoglobin 28.4 L Mean Corpuscular Hemoglobin Concent 32.2 Red Cell Distribution Width 16.3 H Platelet Count 263 Mean Platelet Volume 9.9 Immature Granulocytes % 1.900 H Neutrophils % 65.3 Lymphocytes % 21.6 Monocytes % 8.8 Eosinophils % 2.1 Basophils % 0.3 Nucleated Red Blood Cells % 0.0 Immature Granulocytes # 0.180 H Neutrophils # 6.2 Lymphocytes # 2.1 Monocytes # 0.8 Eosinophils # 0.2 Basophils # 0.0 Nucleated Red Blood Cells # 0.0 Consultation Date/Type/Reason Admit Date/Time Dec 04, 2018 at 19:30 Date of Consultation: Dec 13, 2018 Type of Consult Pulmonary History of presenting illness; patient is a very pleasant 22-year-old female who came into the hospital on the fifth of this month with complaints of mild shor tness of breath as well as chest pressure and abdominal discomfort. The patient noticed the symptoms acutely and according to her she was fine before that. Patient cannot recall any activity that precipitated the symptoms. Also denies any recent prolonged travel or immobilization. Patient denies any chest pain, any further shortness of breath. Denies any abdominal pain. Denies any coughing wheezing sputum production or hemoptysis. According to her she is feeling markedly improved once Procardia has been discontinued. Past medical history; 1. This is patient's second . First was uneventful. Though it was slightly at 34 weeks. 2. No other comorbid conditions. Medications; reviewed. Allergies; none. Social history; noncontributory. Family history; noncontributory. Patient is . No history of any clotting disorders. Occupational history; patient is a housewife. Review of systems; denies any headache, seizures, sinus symptoms. Denies any further shortness of breath. Denies any palpitations. Denies any coughing, hemoptysis, wheezing, sputum production or fever. Denies any abdominal pressure or discomfort. Denies any edema. Any orthopnea. Denies any dyspnea on exertion. Denies any dizziness. Denies any GI or urinary symptoms. General exam; young female, awake and alert. Currently in no distress. Past Medical History Medical History: no pertinent history Medications Current Medications Progesterone (Prometrium) 200 mg QHS VAG Last administered on 12/12/18at 23:15; Admin Dose 200 MG; Start 12/04/18 at 20:00 Docusate Sodium (Colace) 100 mg DAILY PO Last administered on 12/13/18at 08:57; Admin Dose 100 MG; Start 12/06/18 at 22:00 Ferrous Sulfate (Ferrous Sulfate (Ec)) 325 mg HS PO Last administered on 12/12/18at 21:01; Admin Dose 325 MG; Start 12/09/18 at 21:00 Prenat Multivit/ Reference Assistant/Iron/Folic Ac () 1 tab HS PO Last administered on 12/12/18at 21:01; Admin Dose 1 TAB; Start 12/09/18 at 21:00 Al Hydrox/Mg Hydrox/Simethicone (Mag-Al Plus) 30 ml Q6H PRN PO GASTROINTESTINAL UPSET; Start 12/11/18 at 19:00 Polysaccharide Iron Complex (Niferex-150) 1 cap BID PO Last administered on 12/13/18at 08:57; Admin Dose 1 CAP; Start 12/12/18 at 09:00 Folic Acid (Folic Acid) 0.4 mg DAILY PO Last administered on 12/13/18 08:57; Admin Dose 0.4 MG; Start 12/12/18 at 09:00 Heparin Sodium (Porcine) (Heparin (5000 Units/1ml)) 5,000 unit BID SC ; Start 12/11/18 at 23:30; Status Hold Enoxaparin Sodium (Lovenox) 75 mg Q12H SC Last administered on 12/13/18 00:23; Admin Dose 75 MG; Start 12/12/18 at 12:30 Allergies: Coded Allergies: No Known Allergy (Unverified , 10/05/18) Past Surgical History Past Surgical Hx: no surgical history Social History Alcohol Use: none Smoking Status: Never smoker Drug Use: none Exam/Review of Systems Exam H EENT exam; supple neck, no JVD. No lymphadenopathy. Midline trachea. No thyromegaly. Pharynx is clear. No neck masses. Patient has good dentition. Chest exam; clear to auscultation. S1-S2 audible, no murmurs. Regular rhythm. Abdomen exam; soft, gravid. Nontender. Bowel sounds audible. Extremity exam; peripheral edema clubbing. Pulses 2+. TESTING CONSULTANT exam; no focal motor deficit. Medications Medications Current Medications Progesterone (Prometrium) 200 mg QHS VAG Last administered on 12/12/18 23:15; Admin Dose 200 MG; Start 12/04/18 at 20:00 Docusate Sodium (Colace) 100 mg DAILY PO Last administered on 12/13/18 08:57; Admin Dose 100 MG; Start 12/06/18 at 22:00 Ferrous Sulfate (Ferrous Sulfate (Ec)) 325 mg HS PO Last administered on 12/12/18at 21:01; Admin Dose 325 MG; Start 12/09/18 at 21:00 Prenat Multivit/ [place]/Iron/Folic Ac () 1 tab HS PO Last administered on 12/12/18 21:01; Admin Dose 1 TAB; Start 12/09/18 at 21:00 Al Hydrox/Mg Hydrox/Simethicone (Mag-Al Plus) 30 ml Q6H PRN PO GASTROINTESTINAL UPSET; Start 12/11/18 at 19:00 Polysaccharide Iron Complex (Niferex-150) 1 cap BID PO Last administered on 12/13/18 08:57; Admin Dose 1 CAP; Start 12/12/18 at 09:00 Folic Acid (Folic Acid) 0.4 mg DAILY PO Last administered on 12/13/18at 08:57; Admin Dose 0.4 MG; Start 12/12/18 at 09:00 Heparin Sodium (Porcine) (Heparin (5000 Units/1ml)) 5,000 unit BID SC ; Start 12/11/18 at 23:30; Status Hold Enoxaparin Sodium (Lovenox) 75 mg Q12H SC Last administered on 12/13/18at 00:23; Admin Dose 75 MG; Start 12/12/18 at 12:30 EB GARDNER Dec 13, 2018 10:07
--- NOTE | 2018-12-13 13:04 | QN ---
Documentation Comment 32+wks GA with PTL No CTXs No VB NST reassuring [place] No CTXs pelvic Deferred --->close Observation ROSE FORDE M.D. Dec 13, 2018 13:04
--- NOTE | 2018-12-13 17:03 | PN ---
Date/Time of Note Date/Time of Note DATE: 12/13/18 TIME: 17:03 Results Result Diagram: 12/13/18 0615 Medications Medications Current Medications Progesterone (Prometrium) 200 mg QHS VAG Last administered on 12/12/18at 23:15; Admin Dose 200 MG; Start 12/04/18 at 20:00 Docusate Sodium (Colace) 100 mg DAILY PO Last administered on 12/13/18at 08:57; Admin Dose 100 MG; Start 12/06/18 at 22:00 Ferrous Sulfate (Ferrous Sulfate (Ec)) 325 mg HS PO Last administered on 12/12/18at 21:01; Admin Dose 325 MG; Start 12/09/18 at 21:00 Prenat Multivit/ Heavy Equipment Operator/Iron/Folic Ac () 1 tab HS PO Last administered on 12/12/18at 21:01; Admin Dose 1 TAB; Start 12/09/18 at 21:00 Al Hydrox/Mg Hydrox/Simethicone (Mag-Al Plus) 30 ml Q6H PRN PO GASTROINTESTINAL UPSET; Start 12/11/18 at 19:00 Polysaccharide Iron Complex (Niferex-150) 1 cap BID PO Last administered on 12/13/18at 08:57; Admin Dose 1 CAP; Start 12/12/18 at 09:00 Folic Acid (Folic Acid) 0.4 mg DAILY PO Last administered on 12/13/18at 08:57; Admin Dose 0.4 MG; Start 12/12/18 at 09:00 Heparin Sodium (Porcine) (Heparin (5000 Units/1ml)) 5,000 unit BID SC ; Start 12/11/18 at 23:30; Status Hold Enoxaparin Sodium (Lovenox) 75 mg Q12H SC Last administered on 12/13/18at 12:23; Admin Dose 75 MG; Start 12/12/18 at 12:30 Lines/Catheters IV Catheter Type: Thomas in Place: No Assessment/Plan Hospital Course Subjective Patient feeling well, no more severe shortness of breath or palpitations Objective Physical exam General: Patient is laying in bed and answers questions appropriately Mentation: Patient is alert and oriented 4, Head: Normocephalic atraumatic Eyes: EOMI, pupils reactive to light Neck: Supple, nontender, midline Respiratory: Clear to auscultation bilaterally Cardiovascular: regular rate, no obvious murmurs Gastrointestinal: non-tender to palpation, bowel sounds heard. Distended stomach Neurological: Moves all extremities spontaneously Skin: No new skin lesions Assessment/Plan 1. Sinus tachycardia-resolved - Blood pressure stable and fluctuating low 100s to 120s. - Procardia d/c at this time given no contractions - Will continue monitoring - TSH within normal limits - CXR normal 2. Chest discomfort-resolved - most likely pulmonary related given occurs with deep inspiration - pain control as needed - trops negative and ECHO shows no acute CM and EF 60%. - Unable to rule out PE given patient refusing CTA. LE dopplers negative for acute DVT. ECHO negative for acute right heart strain so less likely PE. Would recommend continuing Lovenox for now given unable to rule out PE. VQ scan has more radiation than CTA. -pulmonlogy recommends lovenox until delivery ?UTI on admission -dirty catch with low wbc -received ampicillin for another reason for 3 days -defer to material clerk for need of continued antibiotic due to . questionable contaminated UA 3. IUP at 32 weeks - Management per OB, labor management. 4. Disposition - continue to monitor -lovenox until delivery and CTA could be done to r/o PE per pulm HOOD Waller Dec 13, 2018 17:03
[2018-12-13] MEDS: PRENATAL VITAMIN PO SCH (21:07)
[2018-12-13] MEDS: FERROUS SULFATE (EC) 325 MG TAB PO SCH (21:07)
[2018-12-13] MEDS: PROGESTERONE 100 MG CAP VAG SCH (23:39)
[2018-12-14] MEDS: ENOXAPARIN 80 MG/0.8 ML SYG SC SCH ×2 (00:26→12:23)
[2018-12-14] MEDS: DOCUSATE SODIUM 100 MG CAP PO SCH (10:22)
[2018-12-14] MEDS: POLYSACCHARIDE IRON COMPLEX CAP PO SCH ×2 (10:23→20:49)
[2018-12-14] MEDS: FOLIC ACID 0.4 MG TAB PO SCH (10:23)
--- NOTE | 2018-12-14 12:20 | QN ---
Documentation Comment No complaint Afebrile VSS Strip Reactive Continue present care Perinatology follow up MARCIA COLIN MD Dec 14, 2018 12:20
--- NOTE | 2018-12-14 13:35 | PN ---
Date/Time of Note Date/Time of Note DATE: 12/14/18 TIME: 13:34 Results Result Diagram: 12/14/1833 12/14/1833 Medications Medications Current Medications Progesterone (Prometrium) 200 mg QHS VAG Last administered on 12/13/18at 23:39; Admin Dose 200 MG; Start 12/04/18 at 20:00 Docusate Sodium (Colace) 100 mg DAILY PO Last administered on 12/14/18at 10:22; Admin Dose 100 MG; Start 12/06/18 at 22:00 Ferrous Sulfate (Ferrous Sulfate (Ec)) 325 mg HS PO Last administered on 12/13/18at 21:07; Admin Dose 325 MG; Start 12/09/18 at 21:00 Prenat Multivit/ [place]/Iron/Folic Ac () 1 tab HS PO Last administered on 12/13/18at 21:07; Admin Dose 1 TAB; Start 12/09/18 at 21:00 Al Hydrox/Mg Hydrox/Simethicone (Mag-Al Plus) 30 ml Q6H PRN PO GASTROINTESTINAL UPSET; Start 12/11/18 at 19:00 Polysaccharide Iron Complex (Niferex-150) 1 cap BID PO Last administered on 12/14/18at 10:23; Admin Dose 1 CAP; Start 12/12/18 at 09:00 Folic Acid (Folic Acid) 0.4 mg DAILY PO Last administered on 12/14/18at 10:23; Admin Dose 0.4 MG; Start 12/12/18 at 09:00 Heparin Sodium (Porcine) (Heparin (5000 Units/1ml)) 5,000 unit BID SC ; Start 12/11/18 at 23:30; Status Hold Enoxaparin Sodium (Lovenox) 75 mg Q12H SC Last administered on 12/14/18at 12:23; Admin Dose 75 MG; Start 12/12/18 at 12:30 Lines/Catheters IV Catheter Type: Thomas in Place: No Assessment/Plan Hospital Course Subjective Patient feeling well, no more severe shortness of breath or palpitations Objective Physical exam General: Patient is laying in bed and answers questions appropriately Mentation: Patient is alert and oriented 4, Head: Normocephalic atraumatic Eyes: EOMI, pupils reactive to light Neck: Supple, nontender, midline Respiratory: Clear to auscultation bilaterally Cardiovascular: regular rate/occasionally tachycardic, no obvious murmurs Gastrointestinal: non-tender to palpation, bowel sounds heard. Distended stomach Neurological: Moves all extremities spontaneously Skin: No new skin lesions Assessment/Plan 1. Sinus tachycardia-resolved - Blood pressure stable and fluctuating low 100s to 120s. - Procardia d/c at this time given no contractions - Will continue monitoring - TSH within normal limits - CXR normal 2. Chest discomfort-resolved - most likely pulmonary related given occurs with deep inspiration - pain control as needed - trops negative and ECHO shows no acute CM and EF 60%. - Unable to rule out PE given patient refusing CTA. LE dopplers negative for acute DVT. ECHO negative for acute right heart strain so less likely PE. Would recommend continuing Lovenox for now given unable to rule out PE. VQ scan has more radiation than CTA. -pulmonlogy recommends lovenox until delivery ?UTI on admission -dirty catch with no pyuria -received ampicillin for another reason for 3 days -defer to break and load operator for need of continued antibiotic due to . since likely contaminated UA, 3. IUP at 32 weeks - Management per OB, labor management. 4. Disposition - continue to monitor -lovenox until delivery AND CTA could be done to r/o PE per pulm recs - I will sign off this case, please reconsult as needed HOOD MAGANA Dec 14, 2018 13:35
[2018-12-14] MEDS: PROGESTERONE 100 MG CAP VAG SCH (20:49)
[2018-12-14] MEDS: PRENATAL VITAMIN PO SCH (20:49)
[2018-12-14] MEDS: FERROUS SULFATE (EC) 325 MG TAB PO SCH (20:49)
[2018-12-15] MEDS: ENOXAPARIN 80 MG/0.8 ML SYG SC SCH (00:28)
[2018-12-15] MEDS: POLYSACCHARIDE IRON COMPLEX CAP PO SCH ×2 (09:07→21:32)
[2018-12-15] MEDS: DOCUSATE SODIUM 100 MG CAP PO SCH (09:07)
[2018-12-15] MEDS: FOLIC ACID 0.4 MG TAB PO SCH (09:08)
--- NOTE | 2018-12-15 09:55 | CONS ---
Date/Time of Note Date/Time of Note DATE: 12/15/18 TIME: 09:51 Assessment/Plan Assessment/Plan Assessment/Plan Assessment recommendations; 1. Patient with a history of 34 weeks gestation admitted for shortness of breat h, chest pressure and abdominal discomfort. A clinical suspicion of pulmonary embolism was raised however the patient has totally refused to undergo any CT imaging of the chest due to risk of radiation. Patient also was started on Procardia and there has been significant and complete resolution of symptoms coinciding with discontinuation of Procardia as well as initiation of anti- cognition. Therefore just on clinical grounds alone it would be impossible to rule out pulmonary embolism as the etiology. At this time I would recommend discharging the patient home on half the dose of Lovenox that would be 75 mg subcutaneous once a day until 2 or 3 days before delivery. I again had a discussion with the patient as well as her regarding. CTA of the chest and the patient is adamant in refusing it. After delivery patient will need to have a CTA of the chest done. Result Diagram: 12/14/18 0733 12/14/18 0733 Consultation Date/Type/Reason Admit Date/Time Dec 04, 2018 at 19:30 Initial Consult Date 12/13/18 Type of Consult Pulmonary History of presenting illness; patient is a very pleasant 22-year-old female who came into the hospital on the fifth of this month with complaints of mild shortness of breath as well as chest pressure and abdominal discomfort. The patient noticed the symptoms acutely and according to her she was fine before that. Patient cannot recall any activity that precipitated the symptoms. Also denies any recent prolonged travel or immobilization. Patient denies any chest pain, any further shortness of breath. Denies any abdominal pain. Denies any coughing wheezing sputum production or hemoptysis. According to her she is feeling markedly improved once Procardia has been discontinued. Past medical history; 1. This is patient's second . First was uneventful. Though it was slightly at 34 weeks. 2. No other comorbid conditions. Medications; reviewed. Allergies; none. Social history; noncontributory. Family history; noncontributory. Patient is . No history of any clotting disorders. Occupational history; patient is a housewife. Review of systems; denies any headache, seizures, sinus symptoms. Denies any further shortness of breath. Denies any palpitations. Denies any coughing, hemoptysis, wheezing, sputum production or fever. Denies any abdominal pressure or discomfort. Denies any edema. Any orthopnea. Denies any dyspnea on exertion. Denies any dizziness. Denies any GI or urinary symptoms. General exam; young female, awake and alert. Currently in no distress. Requesting Provider: YEMI LEAL MD 24 HR Interval Summary Free Text/Dictation Patient's condition is stable. Denies any shortness of breath, chest pressure, abdominal pressure, palpitations. General exam; young female, awake and alert. Currently in no distress. Exam/Review of Systems Exam HEENT exam; supple neck, no JVD. No lymphadenopathy. Midline trachea. No thyromegaly. Patient has good dentition. Chest exam; clear to auscultation. S1-S2 audible, no murmurs. Regular rhythm. Abdomen exam; soft, gravid. Extremity exam; no peripheral edema or clubbing. [employer] exam; no focal deficit. Medications Medications Current Medications Progesterone (Prometrium) 200 mg QHS VAG Last administered on 12/14/18at 20:49; Admin Dose 200 MG; Start 12/04/18 at 20:00 Docusate Sodium (Colace) 100 mg DAILY PO Last administered on 12/15/18 09:07; Admin Dose 100 MG; Start 12/06/18 at 22:00 Ferrous Sulfate (Ferrous Sulfate (Ec)) 325 mg HS PO Last administered on 12/14/18 20:49; Admin Dose 325 MG; Start 12/09/18 at 21:00 Prenat Multivit/ Magnetic Locater/Iron/Folic Ac () 1 tab HS PO Last administered on 12/14/18 20:49; Admin Dose 1 TAB; Start 12/09/18 at 21:00 Al Hydrox/Mg Hydrox/Simethicone (Mag-Al Plus) 30 ml Q6H PRN PO GASTROINTESTINAL UPSET; Start 12/11/18 at 19:00 Polysaccharide Iron Complex (Niferex-150) 1 cap BID PO Last administered on 12/15/18 09:07; Admin Dose 1 CAP; Start 12/12/18 at 09:00 Folic Acid (Folic Acid) 0.4 mg DAILY PO Last administered on 12/15/18 09:08; Admin Dose 0.4 MG; Start 12/12/18 at 09:00 Heparin Sodium (Porcine) (Heparin (5000 Units/1ml)) 5,000 unit BID SC ; Start 12/11/18 at 23:30; Status Hold Enoxaparin Sodium (Lovenox) 75 mg Q12H SC Last administered on 12/15/18at 00:28; Admin Dose 75 MG; Start 12/12/18 at 12:30 EB GARDNER Dec 15, 2018 09:55
--- NOTE | 2018-12-15 16:14 | PN ---
Date/Time of Note Date/Time of Note DATE: 12/15/18 TIME: 16:10 OB Subjective Subjective Subjective Patient seen and examined. She states good movement. She denies nausea, vomiting, shortness of breath, chest pain, abdominal pain, headache, visual changes, vaginal bleeding or LOF. OB Objective Objective Objective General: Patient appears well, alert and oriented, NAD, appropriate mood and affect ABD: gravid, soft, non-tender. Back: No CVA tenderness (B/L) LE: Mild edema. No clubbing, cyanosis, edema, thigh or calf tenderness bilaterally FHT: 135 bpm , moderate variability with acceleration, no deceleration-category I Contractions: Occasional OB Assessment/Plan Other plan: 22 year-old with SIUP at 31 weeks and 4-day history of labor at 34 weeks and a short cervix and current - FHR: Reassuring. No sign of metabolic acidosis- Category I - Contractions: None. - Continuous EFM, toco - She has received magnesium sulfate and betamethasone, currently steroid benefited. - continue current management - She is being followed by pulmonology due to having chest pain during current admission JOSE DE JESUS FIERRO Dec 15, 2018 16:14
[2018-12-15] MEDS: PROGESTERONE 100 MG CAP VAG SCH (21:30)
[2018-12-15] MEDS: PRENATAL VITAMIN PO SCH (21:30)
[2018-12-15] MEDS: FERROUS SULFATE (EC) 325 MG TAB PO SCH (21:30)
[2018-12-16] MEDS ORDERED: ENOXAPARIN 80 MG/0.8 ML SYG SC SCH (00:30)
[2018-12-16] MEDS: FOLIC ACID 0.4 MG TAB PO SCH (08:59)
[2018-12-16] MEDS: POLYSACCHARIDE IRON COMPLEX CAP PO SCH (08:59)
[2018-12-16] MEDS: DOCUSATE SODIUM 100 MG CAP PO SCH (08:59)
--- NOTE | 2018-12-21 19:01 | DS ---
DATE OF ADMISSION: 12/04/2018 DATE OF DISCHARGE: 12/16/2018 ADMITTING DIAGNOSIS: at 31 weeks with labor. HISTORY OF PRESENT ILLNESS: A 22-year-old female, 2, para 1 at 31 weeks and 3 days, presente d with complaint of abdominal pressure. The patient is with history of delivery in the past. The patient was admitted on 12/04/2018. The patient was given intravenous magnesium sulfate and in tramuscular betamethasone. After discontinuing magnesium sulfate, the patient was given Procardia fo r tocolysis; however, patient was not able to tolerate the Procardia. The patient had an episode of shortness of breath. Pulmonary consultation was done and the patient was placed on Lovenox for possi ble pulmonary embolism. The patient had declined to have a CT angiogram for evaluation of pulmonary embolism; however since pulmonary embolism could not be completely ruled out, recommendation of carol pierce was to continue the patient on Lovenox. The patient had short cervix; however on followup ultra sound cervical length was noted to be stable. The patient was cleared by pulmonary and perinatology for discharge. The patient is discharged on 12/16/2018. CONDITION ON DISCHARGE: Stable. DISCHARGE INSTRUCTIONS: DIET: Regular. ACTIVITIES: Pelvic rest and modified bed rest at home. MEDICATIONS: Continue with Lovenox per recommendation of pulmonary. FOLLOWUP: Follow up in the office in 1 week. FINAL DIAGNOSES: 1. , not delivered. 2. Threatened labor. Dictated By: MARCIA COLIN MD GD/NTS Conf#: [id number] DID#: [id number] CC: ANNIE VELASCO MD;*EndCC*
== END 2018-12-16 12:17 | disposition home or self-care (01) | DRG 833 ==
LOC: OBT 16:02 → L-D 16:02 → OBT 19:30 → L-D 20:24 → PP1 12-09 20:15
PROVIDERS: ADMIT Obstetrics & Gynecology; ATTEND Obstetrics & Gynecology
DX: O26.873 Cervical shortening, third trimester (principal); O76 Abnormality in fetal heart rate and rhythm complicating labor and delivery; Z3A.31 31 weeks gestation of pregnancy
CPT/HCPCS: 36600; 71046; 76815; 76817; 76818; 80048; 80053; 81001; 82550; 82553; 82731; 82803; 83735; 83880; 84100; 84439; 84443; 84484; 85025; 87086; 90686; 93005; 93306; 93970; G0463; J0290; J0702; J1644; J3475; J7120

== ENCOUNTER 2019-01-13 09:11 | Observation (INO) | payer OTHER ==
[~2019-01-13] VITALS: Ht 160 cm; Wt 77.6 kg
[2019-01-13 09:27] VITALS: BP 117/61; PULSE 94; RESP 20
[2019-01-13 09:28] VITALS: Ht 160 cm; Wt 77.6 kg
--- NOTE | 2019-01-13 17:30 | PN ---
Triage Information Date/Time Jan 13, 2019 at 09:30 Reason for visit: Vag spotting / bleeding Weeks of Gestation 3.7 weeks and 1 day /Para 2 para 1 Diabetes: none Hypertention: none Additional information 23-year-old with IUP at 37 weeks and 1 day presented with complaints of spotting and occasional contraction. She denies any leaking of fluid, decreased movements. Objective Vital Signs Date Temp Pulse Resp B/P (MAP) Pulse Ox O2 O2 Flow FiO2 Time Delivery Rate 01/13/19 98.2 94 20 117/61 97 Room Air 09:27 (79) Heart Rate: 130's Heart Rate Comments Category 1 Contractions: < 5 Minutes Apart Exam GA; A&O, NAD Abdomen : Soft, Non tender, No rebound tenderness, NST" Cat 1 Results/Medications Imaging Results ROCEDURE: US OB. CLINICAL INDICATION: well-being TECHNIQUE: Multiple sonographic images of the pelvis were obtained. The images were reviewed on a PACS workstation. COMPARISON: 12/04/2018 FINDINGS: There is a single live intrauterine . cardiac activity is identified at a rate of 135 beats per minute. presentation is cephalic. Placenta is anterior grade II to III Biophysical profile score is as follows: Breathing 2 Movements 2 Tone 2 Fluid volume 2 Amniotic fluid index = 13.5 cm Total biophysical profile score = 8/8 IMPRESSION: Biophysical profile score = 8/8 RPTAT: Disposition: Discharge Assessment/Plan IUP at 37 weeks and 1 day No evidence of labor Bleeding resolved, Rh+ testing reassuring Labor precautions kick count discussed Follow-up with primary OB office in 48 hours after discharge from the hospital discussed YEMI LEAL MD Jan 13, 2019 17:30
== END 2019-01-13 16:14 | disposition home or self-care (01) ==
LOC: OBT 09:11 → L-D 09:11 → INTOOBSV 09:30 → L-D 09:30 → OBT 09:44
PROVIDERS: ADMIT Obstetrics & Gynecology; ATTEND Obstetrics & Gynecology
DX: O20.0 Threatened abortion (principal); Z3A.37 37 weeks gestation of pregnancy
CPT/HCPCS: 76818; Z7500; 99217; G0378; G0463

== ENCOUNTER 2019-01-19 10:05 | Inpatient (IN) | payer OTHER ==
[~2019-01-19] VITALS: Ht 160 cm; Wt 75.0 kg
[2019-01-19] MEDS ORDERED: LACTATED RINGER'S 1,000 ML IV SCH (10:17)
[2019-01-19 10:21] VITALS: Ht 160 cm; Wt 75.0 kg
[2019-01-19 10:22] VITALS: BP 128/82; PULSE 121
[2019-01-19] MEDS ORDERED: BUTORPHANOL 2 MG INJ IV PRN (10:30)
[2019-01-19] MEDS ORDERED: LIDOCAINE 1% (MPF) 30 ML INJ INJ PRN (10:30)
[2019-01-19] MEDS ORDERED: MISOPROSTOL 200 MCG TAB PR PRN ×2 (10:30→13:30)
[2019-01-19] MEDS ORDERED: OXYTOCIN 30 UNITS/LR 500 ML IV PRN ×2 (10:30→13:30)
[2019-01-19] MEDS ORDERED: METHYLERGONOVINE 0.2 MG INJ IM PRN ×2 (10:30→13:30)
[2019-01-19] MEDS ORDERED: OXYTOCIN 30 UNITS/LR 500 ML IV SCH ×2 (10:30)
[2019-01-19] MEDS ORDERED: BUTORPHANOL 1 MG INJ IV PRN (10:30)
[2019-01-19] MEDS ORDERED: CARBOPROST 250 MCG INJ IM PRN ×2 (10:30→13:30)
[2019-01-19] MEDS ORDERED: LACTATED RINGER'S 1,000 ML IV* SCH (13:25)
[2019-01-19] MEDS ORDERED: DIBUCAINE 1% 30 GM OINT TOP PRN (13:30)
[2019-01-19] MEDS ORDERED: HYDROCODONE/APAP (5/325) TAB PO PRN (13:30)
[2019-01-19] MEDS ORDERED: BENZOCAINE 20% 56 ML SPRAY TOP PRN (13:30)
[2019-01-19] MEDS ORDERED: WITCH HAZEL/GLYCERIN PAD PR PRN (13:30)
[2019-01-19] MEDS ORDERED: ACETAMINOPHEN 325 MG TAB PO PRN (13:30)
[2019-01-19] MEDS: IBUPROFEN 600 MG TAB PO SCH ×3 (14:20→23:41)
[2019-01-19 14:32] VITALS: BP 110/76; PULSE 87; RESP 18
[2019-01-19 16:01] VITALS: BP 116/57; PULSE 96; RESP 18
[2019-01-19 17:17] VITALS: BP 101/56; PULSE 92; RESP 16
--- NOTE | 2019-01-19 19:56 | HP ---
Date/Time of Note Date/Time of Note DATE: 01/19/19 TIME: 19:54 OB - History Hx of Present Chief Complaint: contractions Estimated Due Date: Feb 02, 2019 : 4 Para: 1 Spontaneous : 2 Therapeutic : 0 Care: Good Care Ultrasounds: Normal mid trimester US Obstetrical Complications: None Medical Complications: None Past Family/Social History * Past Medical, Surgical, Family and Obstetric Histories reviewed from chart. GBS Status: Negative OB Admission Exam Vital Signs Vital Signs Vital Signs Date Temp Pulse Resp B/P (MAP) Pulse Ox O2 O2 Flow FiO2 Time Delivery Rate 01/19/19 99.3 92 16 101/56 Room Air 17:17 (71) Physical Exam HEENT: WNL Heart: Rhythm Normal Lungs: Clear, Equal Abdomen: WNL Extremities: Normal Reflexes: Normal Cervical Dilatation: 4cm Effacement: 100% Station: -1 Membranes: Intact Heart Rate: 120's Accelerations: Accelerations Present Decelerations: Variable Decelerations Varibility: Moderate Last 72 hours Lab Results CBC & BMP 01/19/19 10:00 OB Assessment/Plan Reason for admission: active labor Plan: Expectant Management MARCIA COLIN MD Jan 19, 2019 19:56
[2019-01-19 20:00] VITALS: BP 105/60; PULSE 107; RESP 18
--- NOTE | 2019-01-19 20:01 | LDN ---
Date/Time of Note Date/Time of Note DATE: 01/19/19 TIME: 19:56 Delivery Summary Weeks of Gestation 38 weeks Placenta Delivered: Spontaneously Meconium: Thick Episiotomy: No Perineal laceration: 0 Anesthesia type: None Estimated blood loss: 100 Sponge & Needle done & correct: Yes All needle counts correct: Yes Any foreign bodies felt in the: No Delivery Information Sex Sex: female Apgars 1 Minute: 7 5 Minute: 9 Suctioning Nose & mouth suctioned at valerie: No Delee suction performed: Yes Umbilical Cord Umbilical cord with: 3 Vessels Cord presentations: no nuchal cord Cord Blood was obtained: Yes Mother & Baby Disposition Disposition Mom & Baby to Maternity; Good: Yes MARCIA COLIN MD Jan 19, 2019 20:01
[2019-01-19] MEDS: SENNA/DOCUSATE NA (8.6MG/50MG) TAB PO SCH (20:32)
[2019-01-20 00:15] VITALS: BP 117/70; PULSE 106; RESP 18
[2019-01-20 04:15] VITALS: BP 107/64; PULSE 93; RESP 18
[2019-01-20] MEDS: IBUPROFEN 600 MG TAB PO SCH ×3 (05:35→19:25)
[2019-01-20] MEDS: SENNA/DOCUSATE NA (8.6MG/50MG) TAB PO SCH (08:31)
[2019-01-20 16:34] VITALS: BP 97/65; PULSE 86; RESP 20
[2019-01-20 20:10] VITALS: BP 108/66; PULSE 82; RESP 19
[2019-01-21] MEDS: IBUPROFEN 600 MG TAB PO SCH ×3 (00:09→10:10)
[2019-01-21] MEDS: SENNA/DOCUSATE NA (8.6MG/50MG) TAB PO SCH ×2 (00:09→09:00)
[2019-01-21 05:00] VITALS: BP 101/55; PULSE 71; RESP 19
[2019-01-21 08:30] VITALS: BP 110/70; PULSE 80
[2019-01-21] MEDS ORDERED: DIPHTH/TET/ACEL PERTUSS (ADULT) 0.5 ML VIAL IM* ONE (09:00)
== END 2019-01-21 16:02 | disposition home or self-care (01) | DRG 807 ==
LOC: L-D 10:05 → OBT 10:05 → L-D 10:06 → OBT 10:17 → L-D 11:22 → PP1 17:00
PROVIDERS: ADMIT Obstetrics & Gynecology; ATTEND Obstetrics & Gynecology
PROC: 10E0XZZ Delivery of Products of Conception, External Approach (ICD-10-PCS; principal; 2019-01-19)
DX: O77.0 Labor and delivery complicated by meconium in amniotic fluid (principal); Z37.0 Single live birth; Z3A.38 38 weeks gestation of pregnancy; Z23 Encounter for immunization
CPT/HCPCS: 85025; 85610; 85730; 86592; 86850; 86900; 86901; 87070; 88307; 90715; 99464; G0463; J2210; J2590; J7120